=== PATIENT | female | born 1980 | race Caucasian/White ===

== ENCOUNTER 2017-08-02 04:58 | Inpatient (IN) | payer BC ==
[2017-08-02] MEDS ORDERED: ceFAZolin 2 GM in Premix Bag 1 BAG IV ONE (05:14)
[2017-08-02] MEDS ORDERED: Sodium Chloride 0.9% 10 ML Syringe FLUSH PRN (05:14)
[2017-08-02] MEDS ORDERED: Sodium Chloride 0.9% 2.5 ML Syringe FLUSH PRN (05:14)
[2017-08-02] MEDS ORDERED: Oxytocin/0.9 % Sodium Chloride 30 UNIT/500 ML BAG IV SCH (05:15)
[2017-08-02] MEDS ORDERED: Lactated Ringers 1,000 ML IV SCH ×2 (05:15→09:15)
[2017-08-02] MEDS ORDERED: Citric Acid/Sodium Citrate Solution 30 ML Cup PO SCH (05:15)
[2017-08-02] MEDS ORDERED: Octyl 2-Cyanoacrylate 1 Tube ONE (07:17)
--- NOTE | 2017-08-02 07:26 | PCM.PREANE ---
Preanesthetic Assessment - Procedure Proposed Procedure: Repeat with L Salpingectomy - Anesthesia/Transfusion/Family Hx Anesthesia History: Prior Anesthesia Without Reaction Other Type of Anesthesia Reaction Comment: "my dads breathing goes funny or low BP" "not sure" "I have no problems" Family History of Anesthesia Reaction: No Transfusion History: No Prior Transfusion(s) Intubation History: Unknown - Review of Systems General: No Symptoms Pulmonary: No Symptoms Cardiovascular: No Symptoms Gastrointestinal: No Symptoms Neurological: No Symptoms Other: Reports: None - Physical Assessment NPO Status Date: 08/02/17 NPO Status Time: 00:00 Pulse: 75 Blood Pressure: 133/85 Vital Signs: HOME BG @ 4:15AM was 69 - giving LR with D5 now and rechecking - pt took 20 units NPH last noc @ 9PM. After LR with D5 is now 121 Height: 5 ft 10 in Weight: 281 lb ASA Class: 3 Mental Status: Alert & Oriented x3 Airway Class: Mallampati = 2 Dentition: Reports: Normal Dentition Thyro-Mental Finger Breadths: 3 Mouth Opening Finger Breadths: 3 ROM/Head Extension: Full Lungs: Clear to Auscultation, Normal Respiratory Effort Cardiovascular: Regular Rate, Regular Rhythm - Lab Values: Laboratory Last Values WBC 16.49 K/uL (4.0-11.0) H 08/02/17 06:13 RBC 4.67 M/uL (4.30-5.90) 08/02/17 06:13 Hgb 13.2 g/dL (12.0-16.0) 08/02/17 06:13 Hct 38.3 % (36.0-46.0) 08/02/17 06:13 MCV 82.0 fL (80.0-98.0) 08/02/17 06:13 MCH 28.3 pg (27.0-32.0) 08/02/17 06:13 MCHC 34.5 g/dL (31.0-37.0) 08/02/17 06:13 RDW Std Deviation 42.6 fl (28.0-62.0) 08/02/17 06:13 RDW Coeff of Kanu 14 % (11.0-15.0) 08/02/17 06:13 Plt Count 160 K/uL (150-400) 08/02/17 06:13 MPV 11.60 fL (7.40-12.00) 08/02/17 06:13 Nucleated RBC % 0.0 /100WBC 08/02/17 06:13 Nucleated RBCs # 0 K/uL 08/02/17 06:13 Blood Type O POSITIVE 08/02/17 06:13 Antibody Screen NEGATIVE 08/02/17 06:13 - Allergies Allergies/Adverse Reactions: Allergies Allergy/AdvReac Type Severity Reaction Status Date / Time No Known Allergies Allergy Verified 07/27/17 09:19 - Blood Blood Available: No Product(s) Available: None - Anesthesia Plan Free Text/Narrative:: SAB for ; backup general - Acknowledgements Anesthesia Type Planned: Spinal Pt an Appropriate Candidate for the Planned Anesthesia: Yes Alternatives and Risks of Anesthesia Discussed w Pt/Guardian: Yes Pt/Guardian Understands and Agrees with Anesthesia Plan: Yes PreAnesthesia Questionnaire HEENT History: Reports: Other (See Below) Other HEENT History: wears glasses/contacts Gastrointestinal History: Reports: GERD Genitourinary History: Reports: None MANAGER SKILLED History: Reports: Ectopic , Musculoskeletal History: Reports: Other (See Below) (states that she sees a chiropracter, but nothing major) Neurological History: Reports: Migraines Psychiatric History: Reports: Anxiety, Depression Endocrine/Metabolic History: Reports: Diabetes, Gestational (insulin dependent - regular and NPH), Obesity/BMI 30+ Hematologic History: Reports: Blood Transfusion(s) - Past Surgical History Head Surgeries/Procedures: Reports: None HEENT Surgical History: Reports: Tonsillectomy Female Surgical History: Reports: Section, Other (See Below) Other Female Surgeries/Procedures: laparoscopy with rt salpingectomy for ectopic Musculoskeletal Surgical History: Reports: Carpal Tunnel - SUBSTANCE USE Smoking Status *Q: Current Every Day Smoker Tobacco Use Within Last Twelve Months: Cigarettes Second Hand Smoke Exposure: Yes Days Per Week of Alcohol Use: 0 Number of Drinks Per Day: 2 Total Drinks Per Week: 0 Recreational Drug Use History: No - HOME MEDS Home Medications: Home Meds Insulin Isophane NPH, Human [NovoLIN N] 1 injection SUBCUT ASDIRECTED 07/27/17 [ History] Insulin Regular, Human [NovoLIN R] 1 injection SUBCUT ASDIRECTED 07/27/17 [ History] PNV95/Ferrous Fumarate/FA [ Vitamins Tablet] 1 tab PO DAILY 12/27/17 [ History] - CURRENT (IN HOUSE) MEDS Current Meds: Current Medications Citric Acid/Sodium Citrate (Bicitra Solution) 30 ml PO .ONCE DAVID Lactated Ringer's (Ringers, Lactated) 1,000 mls @ 500 mls/hr IV .BOLUS DAVID Oxytocin/Sodium Chloride (Oxytocin 30 Unit/500 Ml-Ns) 30 unit in 500 mls @ 250 mls/hr IV TITRATE DAVID Dextrose/Lactated Ringer's (Dextrose 5%-Lactated Ringers) 1,000 mls @ 150 mls/ hr IV ASDIRECTED DAVID Last Admin: 08/02/17 07:17 Dose: 150 mls/hr Sodium Chloride (Saline Flush) 10 ml FLUSH ASDIRECTED PRN PRN Reason: Keep Vein Open Sodium Chloride (Saline Flush) 2.5 ml FLUSH ASDIRECTED PRN PRN Reason: Keep Vein Open Discontinued Medications Cefazolin Sodium/Dextrose 2 gm (/ Premix) 50 mls @ 100 mls/hr IV ONETIME ONE Stop: 08/02/17 05:43
[2017-08-02] MEDS ORDERED: Morphine PF 10 MG/10 ML SDV ONE (07:27)
[2017-08-02] MEDS ORDERED: Ondansetron 4 MG/2 ML SDV ONE (07:27)
[2017-08-02] MEDS ORDERED: ePHEDrine 50 MG/ML SDV ONE (07:29)
[2017-08-02] MEDS ORDERED: Dextrose 5%-Lactated Ringers 1,000 ML IV SCH (07:30)
[2017-08-02] MEDS ORDERED: Oxytocin/0.9 % Sodium Chloride 30 UNIT/500 ML BAG ONE (07:33)
[2017-08-02] MEDS ORDERED: Methylergonovine 0.2 MG/1 ML Amp ONE (08:23)
[2017-08-02] MEDS ORDERED: Carboprost Tromethamine 250 MCG/1 ML Amp ONE (08:23)
[2017-08-02] MEDS ORDERED: fentaNYL 100 MCG/2 ML SDV ONE (08:41)
[2017-08-02] MEDS ORDERED: Naloxone 0.4 MG/ML Syringe IVPUSH PRN (08:48)
[2017-08-02] MEDS ORDERED: Nalbuphine 10 MG/1 ML Vial IVPUSH PRN (08:48)
[2017-08-02] MEDS ORDERED: diphenhydrAMINE 50 MG/ML SDV IV PRN (08:48)
[2017-08-02] MEDS ORDERED: fentaNYL 100 MCG/2 ML SDV IVPUSH PRN (08:50)
[2017-08-02] MEDS ORDERED: Acetaminophen/oxyCODONE 325-5 MG Tab PO PRN ×3 (08:50→09:09)
[2017-08-02] MEDS ORDERED: diphenhydrAMINE 50 MG/ML SDV IVPUSH PRN (09:09)
[2017-08-02] MEDS ORDERED: Aluminum Hydroxide/Magnesium Hydroxide/Simethicone Susp 30 ML Cup PO PRN (09:09)
[2017-08-02] MEDS ORDERED: Ondansetron 4 MG/2 ML SDV IV PRN (09:09)
[2017-08-02] MEDS ORDERED: Bisacodyl 10 MG Supp RECTAL PRN (09:09)
[2017-08-02] MEDS ORDERED: Simethicone 80 MG Tab.Chew PO PRN (09:09)
[2017-08-02] MEDS ORDERED: Lanolin 100% Cream 7 GM Tube TOP PRN (09:09)
--- NOTE | 2017-08-02 09:21 | PCM.OPNOTE ---
- General Post-Op/Procedure Note Date of Surgery/Procedure: 08/02/17 Operative Procedure(s): Repeat LTCS with left salpingectomy Findings: Viable male APGARs 9, 9 weight 4022 gm. Intact placenta with 3V cord. Normal appearing left tube (right tube absent consistent with surgical history) Pre Op Diagnosis: 39 week IUP. Previous c section, desires repeat. Undesired fertility. GDM--insulin dependent Post-Op Diagnosis: Same Anesthesia Technique: Spinal Primary Surgeon: Joanne Coleman Fluid Replacement, Intraop: 1,500 Output, Urine Amount: 250 EBL in mLs: 700 Complications: None known Condition: Good Free Text/Narrative:: Dictation [id number]
[2017-08-02] MEDS: Ketorolac 30 MG/ML SDV IVPUSH SCH ×3 (09:36→21:11)
--- NOTE | 2017-08-02 09:43 | PCM.POSTAN ---
POST ANESTHESIA ASSESSMENT - MENTAL STATUS Mental Status: Alert, Oriented - VITAL SIGNS Pulse Rate: 77 SaO2: 100 Resp Rate: 16 Blood Pressure: 119/65 - RESPIRATORY Respiratory Status: Respiratory Rate WNL, Airway Patent, O2 Saturation Stable - CARDIOVASCULAR CV Status: Pulse Rate WNL, Blood Pressure Stable - GASTROINTESTINAL GI Status: No Symptoms - PAIN Pain Score: 0 (spinal still intact) - POST OP HYDRATION Hydration Status: Adequate & Stable - OBSERVATIONS Free Text/Narrative:: Pt eating ice chips with no complaints of pain or nausea at this time.
--- NOTE | 2017-08-02 15:11 | OR ---
SURGEON: Joanne Coleman M.D. DATE OF PROCEDURE: 08/02/2017 PREOPERATIVE DIAGNOSES: 1. Thirty-nine week intrauterine . 2. Previous section, desires repeat. 3. Undesired fertility. 4. Gestational diabetes, insulin dependent. POSTOPERATIVE DIAGNOSES: 1. Thirty-nine week intrauterine . 2. Previous section, desires repeat. 3. Undesired fertility. 4. Gestational diabetes, insulin dependent. PROCEDURE: Repeat low transverse section with left salpingectomy. ANESTHESIA: Spinal. ESTIMATED BLOOD LOSS: 700 mL. FLUIDS: 1500 mL of crystalloid. COMPLICATIONS: None. FINDINGS: Term male. scores 9 at one minute and 9 at five minutes. Weight of 4022 g. Intact placenta, 3-vessel cord. Normal-appearing pelvis other than absent right fallopian tube as consistent with surgical history. DISPOSITION: The patient to PACU, to [facility]. PROCEDURE IN DETAIL: Iliana is a 36-year-old G4, P2-0-1-2, at 39 weeks' gestational age, who presents this morning for scheduled repeat delivery. Risks of procedure were discussed. Proper consent was obtained. She also no longer desires fertility and has been approved for remaining salpingectomy, as she has had a previous right salpingectomy due to ectopic . The patient was taken to the operating room where she underwent spinal anesthetic and was then placed in dorsal supine position with a leftward tilt. SCDs to lower extremities. Shaw to gravity. She was prepped and draped in the usual sterile fashion. Anesthesia was tested and found to be adequate. Time- out was performed. The previous Pfannenstiel scar was now excised, carried down to the level of the subcutaneous tissue, down to the level of the rectus fascia, which was incised in midline and lateralized on either side sharply and bluntly. The superior aspect of the fascia was tented upward, dissected sharply and bluntly from underlying muscles. In a similar aspect, this was performed on the inferior aspect of the fascia. The rectus muscles were now in the midline. Peritoneum was entered. The peritoneum was now lateralized bluntly. Uterine position and position palpated. Self-retaining retractor gently placed. Uterovesical reflection was visualized. Bladder flap was created sharply and bluntly. Bladder was mobilized away from the lower uterine segment. Low transverse hysterotomy was performed. Uterine cavity was entered with blunt end of the scalpel. Amniotomy revealed clear fluid. Hysterotomy was then lateralized bluntly. 's head was delivered from the pelvis. Fundal pressure was applied. The 's head was delivered followed by anterior shoulder, posterior shoulder, and remainder of the body without difficulty. The infant's oropharynx and nares were bulb suctioned. Cord was clamped x2 and cut. Infant was handed off to the attending nursing staff. Cord arterial, cord venous, and cord blood samplings were obtained. The placenta was now delivered. Uterine cavity was cleared of all clot and debris. The hysterotomy was repaired using 0 Vicryl in continuous running locked fashion followed by a re-imbricating layer. Area of oozing in the midline was re- imbricated with [id number] suture x2. The posterior aspect of the uterus was inspected. No defects or hematomas were found to be forming. The right fallopian tube was absent, as consistent with surgical history. Left fallopian tube was isolated with [place] clamps. Using Harmonic wand, was able to perform a left salpingectomy. Specimen to pathology. Operative site inspected and found to be hemostatic. Uterus returned to the abdominal cavity. Hysterotomy was again inspected and found to be hemostatic. Colonic gutters were cleared of all clot and debris, well irrigated and suction dried. Hysterotomy site was again inspected and found to be hemostatic. The salpingectomy site was once again inspected and found to be hemostatic. Self-retaining retractor now gently removed. Once again inspected hysterotomy and salpingectomy sites and are found once again to be hemostatic. Rectus muscles now reapproximated using 0 Vicryl with inverted mattress suture technique. Anterior aspect of the muscle and posterior aspect of the fascia closely inspected. Any areas of oozing were cauterized. Rectus fascia was now reapproximated using 0 Vicryl in continuous running fashion beginning laterally on each side and tied in the midline. Subcutaneous tissue was well irrigated and suction dried. The deep subcutaneous tissue was reapproximated using 3-0 plain in continuous running fashion. The remainder of the subcutaneous tissue was well irrigated and suction dried. Any areas of oozing were cauterized. Skin edges were reapproximated using 3-0 Vicryl on a Enmanuel needle in subcuticular fashion followed by Dermabond. Uterus remained firm. Hemostasis remained evident. Sponge, instrument, and needle counts correct x2. The patient tolerated the procedure well. She will go to PACU in stable condition. Specimen to pathology. BYRON / ARTHUR /[id number]
[2017-08-02] MEDS: Docusate Sodium 100 MG Cap PO SCH (20:06)
[2017-08-03] MEDS: Ketorolac 30 MG/ML SDV IVPUSH SCH ×2 (03:20→10:53)
--- NOTE | 2017-08-03 07:26 | PCM48HPAN ---
Post Anesthesia Note - EVALUATION WITHIN 48HRS OF ANESTHETIC Vital Signs in Normal Range: Yes Patient Participated in Evaluation: Yes Respiratory Function Stable: Yes Airway Patent: Yes Cardiovascular Function Stable: Yes Hydration Status Stable: Yes Pain Control Satisfactory: Yes Nausea and Vomiting Control Satisfactory: Yes Mental Status Recovered: Yes - COMMENTS/OBSERVATIONS Free Text/Narrative:: No anesthesia complications
--- NOTE | 2017-08-03 08:55 | PCM.PNPP ---
- General Info Date of Service: 08/03/17 Subjective Update: Patient is feeling very well, pain is well controlled, ambulating halls since last pm. She has voided this am. Lochia is scant. Tolerating regular diet. Bottlefeeding. Functional Status: Reports: Pain Controlled, Tolerating Diet, Ambulating, Urinating - Review of Systems General: Denies: Fever Pulmonary: Denies: Shortness of Breath Cardiovascular: Denies: Chest Pain, Palpitations, Lightheadedness Gastrointestinal: Reports: Abdominal Pain, Flatus. Denies: Nausea, Vomiting Genitourinary: Denies: Flank Pain Psychiatric: Reports: No Symptoms - General Info Date of Service: 08/03/17 - Patient Data Vital Signs - Most Recent: Last Vital Signs Temp 36.7 C 08/03/17 04:00 Pulse 78 08/03/17 04:00 Resp 18 08/03/17 06:00 BP 111/55 L 08/03/17 04:00 Pulse Ox 98 08/03/17 06:00 Weight - Most Recent: 127.459 kg I&O - Last 24 Hours: Intake & Output 08/02/17 08/03/17 08/03/17 22:59 06:59 14:59 Intake Total 1801 Output Total 1300 Balance 501 Lab Results - Last 24 Hours: Laboratory Results - last 24 hr 08/03/17 08/03/17 08/03/17 Range/Units 05:18 05:18 05:18 Hgb 9.5 L (12.0-16.0) g/dL Hct 28.2 L (36.0-46.0) % Fasting Glucose 82 (60-110) mg/dL Hemoglobin A1c 5.1 (0.0-6.0) % Med Orders - Current: Current Medications Al Hydroxide/Mg Hydroxide (Mag-Al Plus) 30 ml PO Q8H PRN PRN Reason: Heartburn Bisacodyl (Dulcolax) 10 mg RECTAL .ONCE PRN PRN Reason: Constipation Citric Acid/Sodium Citrate (Bicitra Solution) 30 ml PO .ONCE DAVID Diphenhydramine HCl (Benadryl) 25 mg IVPUSH Q6H PRN PRN Reason: Itching or Nausea Last Admin: 08/02/17 10:21 Dose: 25 mg Docusate Sodium (Colace) 100 mg PO BID DAVID Last Admin: 08/02/17 20:06 Dose: 100 mg Emollient Ointment (Lansinoh Hpa) 0 gm TOP ASDIRECTED PRN PRN Reason: Sore Nipples Fentanyl (Sublimaze) 25 - 50 mcg IVPUSH Q30M PRN PRN Reason: Pain Lactated Ringer's (Ringers, Lactated) 1,000 mls @ 500 mls/hr IV .BOLUS [facility] Oxytocin/Sodium Chloride (Oxytocin 30 Unit/500 Ml-Ns) 30 unit in 500 mls @ 250 mls/hr IV TITRATE [facility] Dextrose/Lactated Ringer's (Dextrose 5%-Lactated Ringers) 1,000 mls @ 150 mls/ hr IV ASDIRECTED [facility] Last Admin: 08/02/17 07:17 Dose: 150 mls/hr Lactated Ringer's (Ringers, Lactated) 1,000 mls @ 125 mls/hr IV ASDIRECTED [facility] Ibuprofen (Motrin) 800 mg PO Q8H PRN PRN Reason: mild pain or fever Ketorolac Tromethamine (Toradol) 30 mg IVPUSH Q6H [facility] Stop: 08/03/17 09:16 Last Admin: 08/03/17 03:20 Dose: 30 mg Ondansetron HCl (Zofran) 4 mg IV Q4H PRN PRN Reason: Nausea/Vomiting Last Admin: 08/02/17 15:10 Dose: 4 mg Oxycodone/Acetaminophen (Percocet 325-5 Mg) 1 - 2 tab PO Q6H PRN PRN Reason: Pain Stop: 08/04/17 14:00 Oxycodone/Acetaminophen (Percocet 325-5 Mg) 1 tab PO Q4H PRN PRN Reason: Pain (moderate 4-6) Oxycodone/Acetaminophen (Percocet 325-5 Mg) 2 tab PO Q4H PRN PRN Reason: Pain (moderate 4-6) Simethicone (Simethicone) 80 mg PO Q4H PRN PRN Reason: Gas Sodium Chloride (Saline Flush) 10 ml FLUSH ASDIRECTED PRN PRN Reason: Keep Vein Open Sodium Chloride (Saline Flush) 2.5 ml FLUSH ASDIRECTED PRN PRN Reason: Keep Vein Open Discontinued Medications Carboprost Tromethamine (Hemabate Ds) Confirm Administered Dose 250 mcg .ROUTE .STK-MED ONE Stop: 08/02/17 08:24 Diphenhydramine HCl (Benadryl) 25 mg IV Q4H PRN PRN Reason: Itching Stop: 08/03/17 08:48 Ephedrine Sulfate (Ephedrine Sulfate) Confirm Administered Dose 50 mg .ROUTE .STK-MED ONE Stop: 08/02/17 07:30 Fentanyl (Sublimaze) Confirm Administered Dose 100 mcg .ROUTE .STK-MED ONE Stop: 08/02/17 08:42 Cefazolin Sodium/Dextrose 2 gm (/ Premix) 50 mls @ 100 mls/hr IV ONETIME ONE Stop: 08/02/17 05:43 Last Admin: 08/02/17 21:12 Dose: Not Given Oxytocin/Sodium Chloride (Oxytocin 30 Unit/500 Ml-Ns) Confirm Administered Dose 30 unit in 500 mls @ as directed .ROUTE .STK-MED ONE Stop: 08/02/17 07:34 Last Admin: 08/02/17 21:12 Dose: Not Given Methylergonovine Maleate (Methergine) Confirm Administered Dose 0.2 mg .ROUTE .STK-MED ONE Stop: 08/02/17 08:24 Morphine Sulfate (Duramorph Pf) Confirm Administered Dose 10 mg .ROUTE .STK-MED ONE Stop: 08/02/17 07:28 Nalbuphine HCl (Nubain) 5 mg IVPUSH Q3H PRN PRN Reason: Pruritis Stop: 08/03/17 08:48 Last Admin: 08/02/17 20:05 Dose: 5 mg Naloxone HCl (Narcan) 0.1 mg IVPUSH ONETIME PRN PRN Reason: Other Stop: 08/03/17 08:50 Octyl Cyanoacrylate (Dermabond Advance) Confirm Administered Dose 1 applic .ROUTE .STK-MED ONE Stop: 08/02/17 07:18 Ondansetron HCl (Zofran) Confirm Administered Dose 4 mg .ROUTE .STK-MED ONE Stop: 08/02/17 07:28 - Infant Interaction Support Person: - Recovery Exam Fundal Tone: Firm Fundal Level: At Umbilicus Fundal Placement: Midline Lochia Amount: Scant Lochia Color: Rubra/Red Bladder Status: Indwelling Catheter in Place Urinary Elimination: Indwelling Catheter - Exam General: Alert, Oriented Lungs: Normal Respiratory Effort Cardiovascular: Regular Rate, Regular Rhythm GI/Abdominal Exam: Normal Bowel Sounds, Soft. No: Guarding, Rigid Extremities: Pedal Edema (1+). No: Regina's Sign Skin: Warm, Dry Wound/Incisions: Healing Well, No Drainage. No: Erythema Psy/Mental Status: Alert, Normal Affect - Problem List & Annotations (1) delivery delivered SNOMED Code(s): 344424550 Code(s): O82 - ENCOUNTER FOR DELIVERY WITHOUT INDICATION Status: Acute Current Visit: Yes - Problem List Review Problem List Initiated/Reviewed/Updated: Yes - My Orders Last 24 Hours: My Active Orders 08/02/17 09:09 Ambulate [RC] PER UNIT ROUTINE Communication Order [RC] PER UNIT ROUTINE Communication Order [RC] PER UNIT ROUTINE Communication Order [RC] Per Unit Routine May Shower [RC] ASDIRECTED Notify Provider Intake and Out [RC] ASDIRECTED Notify Provider Vital Signs [RC] ASDIRECTED RT Incentive Spirometry [RC] Q2HWA Acetaminophen/oxyCODONE [Percocet 325-5 MG] 1 tab PO Q4H PRN Acetaminophen/oxyCODONE [Percocet 325-5 MG] 2 tab PO Q4H PRN Alum Hydrox/Mag Hydrox/Simeth [Mag-Al Plus] 30 ml PO Q8H PRN Bisacodyl [Dulcolax] 10 mg RECTAL .ONCE PRN Ibuprofen [Motrin] 800 mg PO Q8H PRN Lanolin [Lansinoh HPA] See Dose Instructions TOP ASDIRECTED PRN Ondansetron [Zofran] 4 mg IV Q4H PRN Simethicone 80 mg PO Q4H PRN diphenhydrAMINE [Benadryl] 25 mg IVPUSH Q6H PRN Abdominal Binder [OM.PC] Routine Assess Lochia [WOMSER] Per Unit Routine Assess Uterine Involution [WOMSER] Per Unit Routine Breast Pump [WOMSER] Per Unit Routine Heat Therapy [OM.PC] Routine Ice Therapy [OM.PC] Routine Peripheral IV Discontinue [OM.PC] Routine Sequential Compression Device [OM.PC] Per Unit Routine 08/02/17 09:10 Antiembolic Devices [RC] PER UNIT ROUTINE 08/02/17 09:15 Ketorolac [Toradol] 30 mg IVPUSH Q6H Lactated Ringers [Ringers, Lactated] 1,000 ml IV ASDIRECTED 08/02/17 21:00 Docusate Sodium [Colace] 100 mg PO BID 08/02/17 Lunch Regular Diet [DIET] - Assessment Assessment:: POD 1 status post repeat c section GDM--fasting glucose normal this am - Plan Plan:: Continue to ambulate, may shower today. Continue postoperative cares. Will need 75 gm GTT at PP visit.
[2017-08-03] MEDS: Docusate Sodium 100 MG Cap PO SCH ×2 (10:53→20:55)
[2017-08-03] MEDS: Ibuprofen 800 MG Tab PO PRN (18:00)
[2017-08-04 06:19] VITALS: BP 108/61
--- NOTE | 2017-08-04 08:18 | PCM.PNPP ---
<Ella Johnson - Last Filed: 08/04/17 08:14> - General Info Date of Service: 08/04/17 Functional Status: Reports: Pain Controlled, Tolerating Diet, Ambulating, Urinating - Review of Systems General: Denies: Fever, Weakness, Fatigue Pulmonary: Denies: Shortness of Breath, Pleuritic Chest Pain, Cough Cardiovascular: Denies: Chest Pain, Palpitations, Dyspnea on Exertion Gastrointestinal: Denies: Abdominal Pain Genitourinary: Denies: Dysuria - General Info Date of Service: 08/04/17 - Patient Data Vital Signs - Most Recent: Last Vital Signs Temp 36.7 C 08/04/17 04:00 Pulse 75 08/04/17 04:00 Resp 16 08/04/17 04:00 BP 108/61 08/04/17 04:00 Pulse Ox 96 08/04/17 04:00 Weight - Most Recent: 127.459 kg Med Orders - Current: Current Medications Al Hydroxide/Mg Hydroxide (Mag-Al Plus) 30 ml PO Q8H PRN PRN Reason: Heartburn Bisacodyl (Dulcolax) 10 mg RECTAL .ONCE PRN PRN Reason: Constipation Citric Acid/Sodium Citrate (Bicitra Solution) 30 ml PO .ONCE DAVID Diphenhydramine HCl (Benadryl) 25 mg IVPUSH Q6H PRN PRN Reason: Itching or Nausea Last Admin: 08/02/17 10:21 Dose: 25 mg Docusate Sodium (Colace) 100 mg PO BID [facility] Last Admin: 08/03/17 20:55 Dose: 100 mg Emollient Ointment (Lansinoh Hpa) 0 gm TOP ASDIRECTED PRN PRN Reason: Sore Nipples Fentanyl (Sublimaze) 25 - 50 mcg IVPUSH Q30M PRN PRN Reason: Pain Lactated Ringer's (Ringers, Lactated) 1,000 mls @ 500 mls/hr IV .BOLUS [facility] Oxytocin/Sodium Chloride (Oxytocin 30 Unit/500 Ml-Ns) 30 unit in 500 mls @ 250 mls/hr IV TITRATE [facility]IVD Dextrose/Lactated Ringer's (Dextrose 5%-Lactated Ringers) 1,000 mls @ 150 mls/ hr IV ASDIRECTED [facility] Last Admin: 08/02/17 07:17 Dose: 150 mls/hr Lactated Ringer's (Ringers, Lactated) 1,000 mls @ 125 mls/hr IV ASDIRECTED DAVID Ibuprofen (Motrin) 800 mg PO Q8H PRN PRN Reason: mild pain or fever Last Admin: 08/03/17 18:00 Dose: 800 mg Ondansetron HCl (Zofran) 4 mg IV Q4H PRN PRN Reason: Nausea/Vomiting Last Admin: 08/02/17 15:10 Dose: 4 mg Oxycodone/Acetaminophen (Percocet 325-5 Mg) 1 - 2 tab PO Q6H PRN PRN Reason: Pain Stop: 08/04/17 14:00 Oxycodone/Acetaminophen (Percocet 325-5 Mg) 1 tab PO Q4H PRN PRN Reason: Pain (moderate 4-6) Last Admin: 08/04/17 00:12 Dose: 1 tab Oxycodone/Acetaminophen (Percocet 325-5 Mg) 2 tab PO Q4H PRN PRN Reason: Pain (moderate 4-6) Simethicone (Simethicone) 80 mg PO Q4H PRN PRN Reason: Gas Sodium Chloride (Saline Flush) 10 ml FLUSH ASDIRECTED PRN PRN Reason: Keep Vein Open Sodium Chloride (Saline Flush) 2.5 ml FLUSH ASDIRECTED PRN PRN Reason: Keep Vein Open Discontinued Medications Carboprost Tromethamine (Hemabate Ds) Confirm Administered Dose 250 mcg .ROUTE .STK-MED ONE Stop: 08/02/17 08:24 Diphenhydramine HCl (Benadryl) 25 mg IV Q4H PRN PRN Reason: Itching Stop: 08/03/17 08:48 Ephedrine Sulfate (Ephedrine Sulfate) Confirm Administered Dose 50 mg .ROUTE .STK-MED ONE Stop: 08/02/17 07:30 Fentanyl (Sublimaze) Confirm Administered Dose 100 mcg .ROUTE .STK-MED ONE Stop: 08/02/17 08:42 Cefazolin Sodium/Dextrose 2 gm (/ Premix) 50 mls @ 100 mls/hr IV ONETIME ONE Stop: 08/02/17 05:43 Last Admin: 08/02/17 21:12 Dose: Not Given Oxytocin/Sodium Chloride (Oxytocin 30 Unit/500 Ml-Ns) Confirm Administered Dose 30 unit in 500 mls @ as directed .ROUTE .STK-MED ONE Stop: 08/02/17 07:34 Last Admin: 08/02/17 21:12 Dose: Not Given Ketorolac Tromethamine (Toradol) 30 mg IVPUSH Q6H DAVID Stop: 08/03/17 09:16 Last Admin: 08/03/17 10:53 Dose: 30 mg Methylergonovine Maleate (Methergine) Confirm Administered Dose 0.2 mg .ROUTE .STK-MED ONE Stop: 08/02/17 08:24 Morphine Sulfate (Duramorph Pf) Confirm Administered Dose 10 mg .ROUTE .STK-MED ONE Stop: 08/02/17 07:28 Nalbuphine HCl (Nubain) 5 mg IVPUSH Q3H PRN PRN Reason: Pruritis Stop: 08/03/17 08:48 Last Admin: 08/02/17 20:05 Dose: 5 mg Naloxone HCl (Narcan) 0.1 mg IVPUSH ONETIME PRN PRN Reason: Other Stop: 08/03/17 08:50 Octyl Cyanoacrylate (Dermabond Advance) Confirm Administered Dose 1 applic .ROUTE .STK-MED ONE Stop: 08/02/17 07:18 Ondansetron HCl (Zofran) Confirm Administered Dose 4 mg .ROUTE .STK-MED ONE Stop: 08/02/17 07:28 - Interaction Infant Disposition, : [place] in Room with Family Infant Interaction: Holding Infant Feeding: Bottle Fed Support Person: - Recovery Exam Fundal Tone: Firm Fundal Level: 2 Fingerbreadths Below Umbilicus Fundal Placement: Midline Lochia Amount: Scant Lochia Color: Rubra/Red Perineum Description: Intact, Minimal Bruising/Swelling Episiotomy/Laceration: None Bladder Status: Voiding Urinary Elimination: Voided - Exam General: Alert, Oriented Neck: Supple Lungs: Clear to Auscultation, Normal Respiratory Effort Cardiovascular: Regular Rate, Regular Rhythm GI/Abdominal Exam: Normal Bowel Sounds, No Distention Extremities: Normal Inspection, Pedal Edema (trace) Skin: Warm, Dry, Intact - Problem List & Annotations (1) delivery delivered SNOMED Code(s): 104864553 Code(s): O82 - ENCOUNTER FOR DELIVERY WITHOUT INDICATION Status: Acute Current Visit: Yes - Problem List Review Problem List Initiated/Reviewed/Updated: Yes - Assessment Assessment:: POD 2 status post repeat c section. Minimal pain and lochia. Discharge home today. - Plan Plan:: Discharge home today. Nothing in the vagina for 6 weeks. Rx for Percocet to use as needed for pain. No lifting greater than 10lbs. Instructed patient to call if she develops fever greater than 101 or bleeding through a large pad an hour. F/U with [facility] in 6 weeks. Will need 75 gm GTT at PP visit. <Joanne Coleman R - Last Filed: 08/04/17 09:05> - Patient Data Vital Signs - Most Recent: Last Vital Signs Temp 36.7 C 08/04/17 04:00 Pulse 75 08/04/17 04:00 Resp 16 08/04/17 04:00 BP 108/61 08/04/17 04:00 Pulse Ox 96 08/04/17 04:00 Med Orders - Current: Current Medications Al Hydroxide/Mg Hydroxide (Mag-Al Plus) 30 ml PO Q8H PRN PRN Reason: Heartburn Bisacodyl (Dulcolax) 10 mg RECTAL .ONCE PRN PRN Reason: Constipation Citric Acid/Sodium Citrate (Bicitra Solution) 30 ml PO .ONCE DAVID Diphenhydramine HCl (Benadryl) 25 mg IVPUSH Q6H PRN PRN Reason: Itching or Nausea Last Admin: 08/02/17 10:21 Dose: 25 mg Docusate Sodium (Colace) 100 mg PO BID [facility] Last Admin: 08/03/17 20:55 Dose: 100 mg Emollient Ointment (Lansinoh Hpa) 0 gm TOP ASDIRECTED PRN PRN Reason: Sore Nipples Fentanyl (Sublimaze) 25 - 50 mcg IVPUSH Q30M PRN PRN Reason: Pain Lactated Ringer's (Ringers, Lactated) 1,000 mls @ 500 mls/hr IV .BOLUS [facility] Oxytocin/Sodium Chloride (Oxytocin 30 Unit/500 Ml-Ns) 30 unit in 500 mls @ 250 mls/hr IV TITRATE [facility] Dextrose/Lactated Ringer's (Dextrose 5%-Lactated Ringers) 1,000 mls @ 150 mls/ hr IV ASDIRECTED [facility] Last Admin: 08/02/17 07:17 Dose: 150 mls/hr Lactated Ringer's (Ringers, Lactated) 1,000 mls @ 125 mls/hr IV ASDIRECTED DAVID Ibuprofen (Motrin) 800 mg PO Q8H PRN PRN Reason: mild pain or fever Last Admin: 08/03/17 18:00 Dose: 800 mg Ondansetron HCl (Zofran) 4 mg IV Q4H PRN PRN Reason: Nausea/Vomiting Last Admin: 08/02/17 15:10 Dose: 4 mg Oxycodone/Acetaminophen (Percocet 325-5 Mg) 1 - 2 tab PO Q6H PRN PRN Reason: Pain Stop: 08/04/17 14:00 Oxycodone/Acetaminophen (Percocet 325-5 Mg) 1 tab PO Q4H PRN PRN Reason: Pain (moderate 4-6) Last Admin: 08/04/17 00:12 Dose: 1 tab Oxycodone/Acetaminophen (Percocet 325-5 Mg) 2 tab PO Q4H PRN PRN Reason: Pain (moderate 4-6) Simethicone (Simethicone) 80 mg PO Q4H PRN PRN Reason: Gas Sodium Chloride (Saline Flush) 10 ml FLUSH ASDIRECTED PRN PRN Reason: Keep Vein Open Sodium Chloride (Saline Flush) 2.5 ml FLUSH ASDIRECTED PRN PRN Reason: Keep Vein Open Discontinued Medications Carboprost Tromethamine (Hemabate Ds) Confirm Administered Dose 250 mcg .ROUTE .STK-MED ONE Stop: 08/02/17 08:24 Diphenhydramine HCl (Benadryl) 25 mg IV Q4H PRN PRN Reason: Itching Stop: 08/03/17 08:48 Ephedrine Sulfate (Ephedrine Sulfate) Confirm Administered Dose 50 mg .ROUTE .STK-MED ONE Stop: 08/02/17 07:30 Fentanyl (Sublimaze) Confirm Administered Dose 100 mcg .ROUTE .STK-MED ONE Stop: 08/02/17 08:42 Cefazolin Sodium/Dextrose 2 gm (/ Premix) 50 mls @ 100 mls/hr IV ONETIME ONE Stop: 08/02/17 05:43 Last Admin: 08/02/17 21:12 Dose: Not Given Oxytocin/Sodium Chloride (Oxytocin 30 Unit/500 Ml-Ns) Confirm Administered Dose 30 unit in 500 mls @ as directed .ROUTE .STK-MED ONE Stop: 08/02/17 07:34 Last Admin: 08/02/17 21:12 Dose: Not Given Ketorolac Tromethamine (Toradol) 30 mg IVPUSH Q6H DAVID Stop: 08/03/17 09:16 Last Admin: 08/03/17 10:53 Dose: 30 mg Methylergonovine Maleate (Methergine) Confirm Administered Dose 0.2 mg .ROUTE .STK-MED ONE Stop: 08/02/17 08:24 Morphine Sulfate (Duramorph Pf) Confirm Administered Dose 10 mg .ROUTE .STK-MED ONE Stop: 08/02/17 07:28 Nalbuphine HCl (Nubain) 5 mg IVPUSH Q3H PRN PRN Reason: Pruritis Stop: 08/03/17 08:48 Last Admin: 08/02/17 20:05 Dose: 5 mg Naloxone HCl (Narcan) 0.1 mg IVPUSH ONETIME PRN PRN Reason: Other Stop: 08/03/17 08:50 Octyl Cyanoacrylate (Dermabond Advance) Confirm Administered Dose 1 applic .ROUTE .STK-MED ONE Stop: 08/02/17 07:18 Ondansetron HCl (Zofran) Confirm Administered Dose 4 mg .ROUTE .STK-MED ONE Stop: 08/02/17 07:28 - Problem List & Annotations (1) delivery delivered SNOMED Code(s): 044756928 Code(s): O82 - ENCOUNTER FOR DELIVERY WITHOUT INDICATION Status: Acute Current Visit: Yes - Plan Plan:: Patient seen and examined--agree with above. Fasting glucose this am 92. She had a reading of 141 and 109 yesterday, so will monitor for now. As above.
[2017-08-04] MEDS: Ibuprofen 800 MG Tab PO PRN (09:54)
== END 2017-08-04 10:21 | disposition home or self-care (01) | DRG 540 ==
LOC: MW.OB 04:58
PROVIDERS: ADMIT Obstetrics & Gynecology; ATTEND Obstetrics & Gynecology
PROC: 10D00Z1 Extraction of Products of Conception, Low, Open Approach (ICD-10-PCS; principal; 2017-08-02)
PROC: 0UT60ZZ Resection of Left Fallopian Tube, Open Approach (ICD-10-PCS; 2017-08-02)
DX: O34.211 Maternal care for low transverse scar from previous cesarean delivery (principal); O24.424 Gestational diabetes mellitus in childbirth, insulin controlled; Z3A.39 39 weeks gestation of pregnancy; Z37.0 Single live birth; Z30.2 Encounter for sterilization
CPT/HCPCS: 01961; 36415; 59025; 82947; 82962; 83036; 85014; 85018; 85027; 86850; 86900; 86901; 88305; A9270-GY; J0690; J1200; J1885; J2210; J2270; J2300; J2405; J3010; J7042

== ENCOUNTER 2019-02-27 13:27 | Emergency (ER) | payer BC ==
[2019-02-27] MEDS ORDERED: diphenhydrAMINE 50 MG/ML SDV IVPUSH ONE (14:01)
[2019-02-27] MEDS ORDERED: Ketorolac 30 MG/ML SDV IVPUSH ONE (14:01)
[2019-02-27] MEDS ORDERED: Ondansetron 4 MG/2 ML SDV IVPUSH ONE (14:01)
[2019-02-27] MEDS ORDERED: Sodium Chloride 0.9% 1,000 ML IV ONE (14:01)
--- NOTE | 2019-02-27 14:05 | EDM.PDOC ---
ED HPI GENERAL MEDICAL PROBLEM - General Chief Complaint: Neurological Problem Stated Complaint: MIGRANE Time Seen by Provider: 02/27/19 13:46 Source of Information: Reports: Patient History Limitations: Reports: No Limitations - History of Present Illness INITIAL COMMENTS - FREE TEXT/NARRATIVE: HISTORY AND PHYSICAL: History of present illness: Presents reporting migraine headache. She woke up this morning with it. Patient states this is her usual pattern. Also reports mild nausea and a little blurry vision. 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 Has a severe migraine that requires medical care every couple years. She took 800 ibuprofen this morning without relief. Review of systems: As per history of present illness and below otherwise all systems reviewed and negative. Past medical history: As per history of present illness and as reviewed below otherwise noncontributory. Surgical history: As per history of present illness and as reviewed below otherwise noncontributory. Social history: No reported history of drug or alcohol abuse. Family history: As per history of present illness and as reviewed below otherwise noncontributory. Physical exam: HEENT: Atraumatic, normocephalic, pupils reactive, negative for conjunctival pallor or scleral icterus, mucous membranes moist, throat clear, neck supple, nontender, trachea midline. Lungs: Clear to auscultation, breath sounds equal bilaterally, chest nontender. Heart: S1S2, regular, negative for clicks, rubs, or JVD. Abdomen: Soft, nondistended, nontender. Negative for masses or hepatosplenomegaly. Negative for costovertebral tenderness. Pelvis: Stable nontender. Genitourinary: Deferred. Rectal: Deferred. Extremities: Atraumatic, negative for cords or calf pain. Neurovascular unremarkable. Neuro: Awake, alert, oriented. Cranial nerves II through XII unremarkable. Cerebellum unremarkable. Motor and sensory unremarkable throughout. Exam nonfocal. Diagnostics: [] Therapeutics: [] Impression: [] Plan: [] Definitive disposition and diagnosis as appropriate pending reevaluation and review of above. Head Pain Score (Numeric/FACES): 7 - Related Data Allergies Allergy/AdvReac Type Severity Reaction Status Date / Time No Known Allergies Allergy Verified 07/27/17 09:19 Home Meds: Home Meds . 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: Ectopic , Musculoskeletal History: Reports: Other (See Below) Neurological History: Reports: Migraines Psychiatric History: Reports: Anxiety, Depression Endocrine/Metabolic History: Reports: Diabetes, Gestational, Obesity/BMI 30+ Hematologic History: Reports: Blood Transfusion(s) - Past Surgical History Head Surgeries/Procedures: Reports: None HEENT Surgical History: Reports: Tonsillectomy Female Surgical History: Reports: Section, Other (See Below) Other Female Surgeries/Procedures: laparoscopy with rt salpingectomy for ectopic Musculoskeletal Surgical History: Reports: Carpal Tunnel Social & Family History - Family History Family Medical History: Noncontributory - Tobacco Use Smoking Status *Q: Current Every Day Smoker Years of Tobacco use: 15 Packs/Tins Daily: 1 - Caffeine Use Caffeine Use: Reports: Coffee - Recreational Drug Use Recreational Drug Use: No ED ROS GENERAL - Review of Systems Review Of Systems: ROS reveals no pertinent complaints other than HPI. ED EXAM, NEURO - Physical Exam Exam: See Below Exam Limited By: No Limitations General Appearance: Alert, No Apparent Distress Eye Exam: Bilateral Eye: PERRL Ears: Normal External Exam Nose: Normal Inspection Throat/Mouth: Normal Inspection Head Exam: Atraumatic, Normocephalic Neck: Normal Inspection Respiratory/Chest: No Respiratory Distress, Lungs Clear Cardiovascular: Normal Peripheral Pulses, Regular Rate, Rhythm, No Murmur Neurological: Alert, Oriented x 3 Back Exam: Normal Inspection Extremities: Normal Inspection Psychiatric: Normal Affect, Normal Mood Skin Exam: Warm, Dry, Intact, Normal Color, No Rash Course - Vital Signs Last Recorded V/S: Last Vital Signs Temp 36.4 C 02/27/19 13:46 Pulse 73 02/27/19 13:46 Resp 20 02/27/19 13:46 BP 144/79 H 02/27/19 13:46 Pulse Ox 96 02/27/19 13:46 - Orders/Labs/Meds Meds: Medications Discontinued Medications Generic Name Dose Route Start Last Admin Trade Name Freq PRN Reason Stop Dose Admin Diphenhydramine HCl 50 mg 02/27/19 14:01 02/27/19 14:19 Benadryl IVPUSH 07/30/19 14:02 50 mg ONETIME ONE Administration Sodium Chloride 1,000 mls @ 999 mls/hr 02/27/19 14:01 02/27/19 14:19 Normal Saline IV 02/27/19 15:01 999 mls/hr STAT ONE Administration Ketorolac Tromethamine 30 mg 02/27/19 14:01 02/27/19 14:19 Toradol IVPUSH 02/27/19 14:02 30 mg ONETIME ONE Administration Ondansetron HCl 4 mg 02/27/19 14:01 02/27/19 14:19 Zofran IVPUSH 02/27/19 14:02 4 mg ONETIME ONE Administration Departure - Departure Time of Disposition: 15:20 Disposition: Home, Self-Care 01 Clinical Impression: Migraine Qualifiers: Migraine type: unspecified Status migrainosus presence: without status migrainosus Intractability: not intractable Qualified Code(s): G43.909 - Migraine, unspecified, not intractable, without status migrainosus - Discharge Information Referrals: PCP,None [Primary Care Provider] - [facility] [Outside] [facility] [Outside] Forms: ED Department Discharge Additional Instructions: The following information is given to patients seen in the emergency department who are being discharged to home. This information is to outline your options for follow-up care. We provide all patients seen in our emergency department with a follow-up referral. The need for follow-up, as well as the timing and circumstances, are variable depending upon the specifics of your emergency department visit. If you don't have a primary care physician on staff, we will provide you with a referral. We always advise you to contact your personal physician following an emergency department visit to inform them of the circumstance of the visit and for follow-up with them and/or the need for any referrals to a consulting specialist. The emergency department will also refer you to a specialist when appropriate. This referral assures that you have the opportunity for follow-up care with a specialist. All of these measure are taken in an effort to provide you with optimal care, which includes your follow-up. Under all circumstances we always encourage you to contact your private physician who remains a resource for coordinating your care. When calling for follow-up care, please make the office aware that this follow-up is from your recent emergency room visit. If for any reason you are refused follow-up, please contact the [facility] Emergency Department at and asked to speak to the emergency department charge nurse. 1. Follow-up with your primary care provider Dr. Lambert
[2019-02-27 15:36] VITALS: BP 111/62; PULSE 71
== END 2019-02-27 15:37 | disposition home or self-care (01) ==
LOC: MW.ED 13:27
DX: G43.909 Migraine, unspecified, not intractable, without status migrainosus (principal); F17.210 Nicotine dependence, cigarettes, uncomplicated
CPT/HCPCS: 96361; 96374; 96375; 99283; J1200; J1885; J2405; J7040

== ENCOUNTER 2025-05-16 09:57 | Day surgery (SDC) | payer BC ==
[~2025-05-16 09:57] MED LIST: Sodium Chloride 0.9% 10 ML Syringe FLUSH PRN; Sodium Chloride 0.9% 2.5 ML Syringe FLUSH PRN
[2025-05-16] MEDS: Lactated Ringers 1,000 ML IV SCH (10:15)
[2025-05-16] MEDS ORDERED: Magnesium Sulfate (4.06 MEQ/ML) 5 GM/10 ML SDV ONE (10:45)
[2025-05-16] MEDS ORDERED: Ondansetron 4 MG/2 ML SDV ONE (10:45)
[2025-05-16] MEDS ORDERED: propofoL 500 MG/50 ML 50 ML ONE (10:55)
[2025-05-16] MEDS ORDERED: Propofol 200 MG/20 ML SDV ONE (10:56)
[2025-05-16] MEDS ORDERED: propofoL 500 MG/50 ML 0 ML ONE (11:10)
[2025-05-16] MEDS ORDERED: Ketamine HCL/NACL, ISO-OSM 50 MG/5 ML Syringe ONE (11:38)
[2025-05-16 13:00] VITALS: BP 98/53; PULSE 56
== END 2025-05-16 13:10 | disposition home or self-care (01) ==
LOC: MW.SDS 09:57
PROVIDERS: ATTEND Surgery
DX: Z12.11 Encounter for screening for malignant neoplasm of colon (principal); D12.5 Benign neoplasm of sigmoid colon; K63.5 Polyp of colon; K62.1 Rectal polyp; E11.9 Type 2 diabetes mellitus without complications; E66.813 Obesity, class 3; F17.290 Nicotine dependence, other tobacco product, uncomplicated; Z79.84 Long term (current) use of oral hypoglycemic drugs; Z68.36 Body mass index [BMI] 36.0-36.9, adult; Z79.899 Other long term (current) drug therapy
CPT/HCPCS: 45380; J2405; J2704; J3475; J7120; J3490